=== PATIENT | male | born 1970 | race Caucasian/White ===

== ENCOUNTER 2024-10-07 07:51 | Day surgery (SDC) | payer BC ==
[~2024-10-07 07:51] MED LIST: Bupivacaine 0.25% 10 ML SDV ONE; Sodium Chloride 0.9% 10 ML Syringe FLUSH PRN; Sodium Chloride 0.9% 10 ML Syringe FLUSH SCH
[2024-10-07] MEDS: Lactated Ringers 1,000 ML IV SCH (08:25)
[2024-10-07] MEDS ORDERED: Propofol 200 MG/20 ML SDV ONE (08:53)
[2024-10-07] MEDS ORDERED: Ondansetron 4 MG/2 ML SDV ONE (09:00)
[2024-10-07] MEDS ORDERED: Dexamethasone 4 MG/ML 5 ML MDV ONE (09:00)
[2024-10-07] MEDS ORDERED: fentaNYL 100 MCG/2 ML SDV ONE (09:00)
[2024-10-07] MEDS ORDERED: ceFAZolin 2 GM Vial ONE (09:04)
[2024-10-07] MEDS: VANCOmycin 1 GM SDV ONE (09:32)
[2024-10-07] MEDS ORDERED: HYDROmorphone 0.5 MG/0.5 ML Syringe IVPUSH ONE (10:00)
[2024-10-07] MEDS: fentaNYL 100 MCG/2 ML SDV IVPUSH PRN (10:05)
[2024-10-07] MEDS: Acetaminophen/HYDROcodone 325-5 MG Tab PO PRN (11:00)
== END 2024-10-07 12:15 | disposition home or self-care (01) ==
LOC: JD.SDS 07:51
PROVIDERS: ATTEND Orthopaedic Surgery
DX: M70.42 Prepatellar bursitis, left knee (principal); Z79.899 Other long term (current) drug therapy
CPT/HCPCS: 27340; A9270; J0665; J0690; J1100; J2405; J2704; J3010; J7120